=== PATIENT | female | born 1985 | race Two or more races ===

== ENCOUNTER 2020-04-06 11:19 | Emergency (ER) | payer MEDICAID ==
[~2020-04-06] VITALS: Ht 149.9 cm; Wt 70.3 kg
--- NOTE | 2020-04-06 11:35 | Emergency Room Report ---
History of Present Illness General Chief Complaint: Fever Source: Patient Present Illness HPI Disclaimer: Please note that this report is being documented using DRAGON technology. This can lead to erroneous entry secondary to incorrect interpretation by the dictating instrument. HPI: 35-year-old otherwise healthy female presents for evaluation of fever. She presents with her 6-year-old son who has similar symptoms. She reports low- grade fevers over the past 3 to 5 days. Denies cough, sore throat, nasal congestion, chest pain, palpitations, shortness of breath, nausea, vomiting, diarrhea. Multiple people in the house have been tested for COVID-19 infection and thus far resulted negative. Fevers responding well to Tylenol. No other complaints at this time. COVID-19 Screening Contact w/high risk pt: No Experienced COVID-19 symptoms?: Yes COVID-19 Testing performed [employer]: Yes COVID-19 Screening: PUI COVID-19 COVID-19 Testing Source: [facility] Patient History Last Menstrual Period: Unkown Now: No Review of Systems All Other Systems: negative except mentioned in HPI Physical Exam Vital Signs Date Time Temp Pulse Resp B/P (MAP) Pulse Ox O2 Delivery O2 Flow Rate FiO2 04/06/20 11:23 99.3 88 20 118/72 (87) 95 Room Air General: Awake and alert, no acute distress, afebrile HEENT: NC/AT. EOMI. PERRLA. No icterus, no injection. Uvula midline. No pharyngeal edema or erythema. Resp: Normal work of breathing. No cough, no wheezing, no crackles. Skin: Intact. No abrasions, laceration or rash over the exposed skin MSK: Normal tone and bulk. Moving all extremities. No obvious deformity. Neuro: Awake and alert. Mentating appropriately Medical Decision Making Diagnostic Impression: Primary Impression: Febrile illness Additional Impression: Suspected 2019 novel coronavirus infection ER Course Is a 35-year-old female presenting for evaluation of intermittent fevers over the past few days. Patient awaiting the results of a outpatient COVID-19 test performed 3 days ago. Has been using Tylenol at home with good effect and has no other complaints at this time. No indication for emergent labs and imaging as she otherwise is well-appearing and physical exam is reassuring. Will discharge and follow-up with PMD and await the results of the outpatient test however I instructed her to remain in isolation and quarantine as much as possible until those results are obtained. She will follow-up with her PMD. Discussed reasons to return to the ED. She understands and agrees with this treatment plan. Last Vital Signs Date Time Temp Pulse Resp B/P (MAP) Pulse Ox O2 Delivery O2 Flow Rate FiO2 04/06/20 11:23 99.3 88 20 118/72 (87) 95 Room Air Disposition: HOME, SELF-CARE Condition: Stable Clive Hoang MD Apr 06, 2020 11:35
[2020-04-06 11:42] VITALS: BP 118/72
[2020-04-06 11:45] VITALS: BP 118/72
== END 2020-04-06 11:44 | disposition home or self-care (01) ==
LOC: EMR 11:36
DX: R50.9 Fever, unspecified (principal)
CPT/HCPCS: 99281